=== PATIENT | male | born 1965 | race Two or more races ===

== ENCOUNTER 2017-11-16 09:13 | Emergency (ER) | payer OTHER, SELFPAY ==
[~2017-11-16] VITALS: Ht 165.1 cm; Wt 72.6 kg
[~2017-11-16 09:13] MED LIST: NKM; NORCO 5-325 TA1 EACH ORAL
[2017-11-16] MEDS ORDERED: NORVASC2.5 MG ORAL (09:14)
[2017-11-16] MEDS ORDERED: Meclizine 25mg tab ORAL ONE (09:15)
--- NOTE | 2017-11-16 09:15 | Emergency Room Report ---
History of Present Illness General Source: Patient, EMS Present Illness HPI Patient is a 52-year-old male who presented via EMS after increased spinning sensation. Patient had sudden onset of symptoms. Patient had recently been started on Norvasc. He reports worsening dizziness with head movements. This was associated with nausea and vomiting. Patient denies any weakness to his extremities. He had not been having any fever. The patient denied feeling lightheaded. Allergies: Coded Allergies: No Known Allergies (Unverified , 04/25/13) Patient History Past Medical History: HTN Reviewed Nursing Documentation: PMH: Agreed; PSxH: Agreed Review of Systems All Other Systems: negative except mentioned in HPI Physical Exam Sp02 EP Interpretation: reviewed, normal General Appearance: normal inspection, alert, GCS 15, non-toxic, mild distress Head: atraumatic ENT: normal ENT inspection, hearing grossly normal, normal voice, uvula midline , other - nystagmus Neck: normal inspection, full range of motion, supple, no bony tend Respiratory: normal inspection, lungs clear, normal breath sounds, no respiratory distress, no retraction, no wheezing Cardiovascular #1: regular rate, rhythm, no edema Gastrointestinal: normal inspection, normal bowel sounds, non tender, soft, no guarding, no hernia Genitourinary: no CVA tenderness Musculoskeletal: normal inspection, back normal, normal range of motion Neurologic: normal inspection, alert, oriented x3, responsive, information technology instructor III-XII nml as tested, speech normal, nystagmus Psychiatric: normal inspection, judgement/insight normal, mood/affect normal Skin: normal inspection, normal color, no rash Medical Decision Making Diagnostic Impression: Primary Impression: Vertigo ER Course Patient presented for dizziness. Differential diagnosis included was not limited to CVA, vertebrobasilar insufficiency, myocardial infarction, benign positional vertigo, labyrinthitis, aspirin overdose among others. The patient has exam consistent with peripheral vertigo likely do to benign positional vertigo. Patient is given Zofran and oral meclizine. Patient was noted to have continued spinning sensation and was having continued difficulty ambulating. The patient reported having some discomfort to his neck and so CT of neck with contrast was ordered to evaluate for possible vertebral dissection. The patient was discussed with Dr. Andrea for transfer and will be transferred [facility] if CT is negative Labs Test 11/16/17 02:21 White Blood Count 13.2 K/UL (4.8-10.8) Red Blood Count 5.57 M/UL (4.70-6.10) Hemoglobin 16.2 G/DL (14.2-18.0) Hematocrit 46.8 % (42.0-52.0) Mean Corpuscular Volume 84 FL (80-99) Mean Corpuscular Hemoglobin 29.1 PG (27.0-31.0) Mean Corpuscular Hemoglobin Concent 34.6 G/DL (32.0-36.0) Red Cell Distribution Width 11.0 % (11.6-14.8) Platelet Count 232 K/UL (150-450) Mean Platelet Volume 7.6 FL (6.5-10.1) Neutrophils (%) (Auto) % (45.0-75.0) Lymphocytes (%) (Auto) % (20.0-45.0) Monocytes (%) (Auto) % (1.0-10.0) Eosinophils (%) (Auto) % (0.0-3.0) Basophils (%) (Auto) % (0.0-2.0) Differential Total Cells Counted 100 Neutrophils % (Manual) 85 % (45-75) Lymphocytes % (Manual) 11 % (20-45) Monocytes % (Manual) 3 % (1-10) Eosinophils % (Manual) 1 % (0-3) Basophils % (Manual) 0 % (0-2) Band Neutrophils 0 % (0-8) Platelet Estimate Adequate Platelet Morphology Normal Red Blood Cell Morphology Normal Prothrombin Time 10.1 SEC (9.30-11.50) Prothromb Time International Ratio 1.0 (0.9-1.1) Activated Partial Thromboplast Time 25 SEC (23-33) Sodium Level 139 MMOL/L (136-145) Potassium Level 3.6 MMOL/L (3.5-5.1) Chloride Level 102 MMOL/L (98-107) Carbon Dioxide Level 26 MMOL/L (21-32) Anion Gap 11 mmol/L (5-15) Blood Urea Nitrogen 13 mg/dL (7-18) Creatinine 0.9 MG/DL (0.55-1.30) Estimat Glomerular Filtration Rate > 60 mL/min (>60) Glucose Level 142 MG/DL (74-106) Calcium Level 8.8 MG/DL (8.5-10.1) Total Bilirubin 0.3 MG/DL (0.2-1.0) Aspartate Amino Transf (AST/SGOT) 23 U/L (15-37) Alanine Aminotransferase (ALT/SGPT) 43 U/L (12-78) Alkaline Phosphatase 79 U/L (46-116) Total Creatine Kinase 142 U/L (26-308) Creatine Kinase MB 3.1 NG/ML (0.0-3.6) Creatine Kinase MB Relative Index 2.1 Troponin I 0.000 ng/mL (0.000-0.056) Pro-B-Type Natriuretic Peptide 6 pg/mL (0-125) Total Protein 8.3 G/DL (6.4-8.2) Albumin 4.0 G/DL (3.4-5.0) Globulin 4.3 g/dL Albumin/Globulin Ratio 0.9 (1.0-2.7) EKG Diagnostic Results Rate: normal - 58 Rhythm: NSR ST Segments: no acute changes Status: unchanged Disposition: XFER SHT-TRM HOSP Condition: Serious Scripts Meclizine Hcl* (MECLIZINE*) 25 Mg Tablet 25 MG ORAL THREE TIMES A DAY, #30 TAB Prov: Humberto Paul MD 11/16/17 Ondansetron (Zofran) 4 Mg Tablet 4 MG ORAL Q6H PRN for Nausea & Vomiting, #30 TAB 0 Refills Prov: Humberto Paul MD 11/16/17 Humberto Paul MD Nov 16, 2017 09:15
[2017-11-16 09:30] VITALS: BP 175/83
[2017-11-16] MEDS ORDERED: Meclizine 25mg tab ONE (09:53)
[2017-11-16 10:01] VITALS: BP 154/90
--- NOTE | 2017-11-16 10:07 | Diagnostic Imaging Report ---
EXAM: CT Head Without Intravenous Contrast CLINICAL HISTORY: PAIN TECHNIQUE: Axial computed tomography images of the head/brain without intravenous contrast. CTDI is 70.38 mGy and DLP is 1354 mGy-cm. One or more of the following dose reduction techniques were used: automated exposure control, adjustment of the mA and/or kV according to patient size, use of iterative reconstruction technique. COMPARISON: No relevant prior studies available. FINDINGS: Brain: Unremarkable. No hemorrhage. No significant white matter disease. No edema. Ventricles: Unremarkable. No ventriculomegaly. Bones/joints: Unremarkable. No acute fracture. Soft tissues: Unremarkable. Sinuses: Bilateral maxillary sinus mucous retention cyst or polyps. Mild ethmoid sinus mucosal thickening. Mastoid air cells: Unremarkable as visualized. No mastoid effusion. IMPRESSION: 1. No acute intracranial abnormality. 2. Paranasal sinus mucous retention cyst or polyps.
[2017-11-16 11:00] VITALS: BP 152/79
[2017-11-16] MEDS ORDERED: MECLIZINE HCL25 MG ORAL (12:01)
[2017-11-16] MEDS ORDERED: ZOFRAN4 MG ORAL (12:01)
[2017-11-16] MEDS ORDERED: Metoclopramide 10mg/2ml Inj ONE (12:12)
[2017-11-16] MEDS ORDERED: Isovue-370 150ml vial INJ PRN (12:15)
[2017-11-16 12:34] LABS: HEMATOCRIT 46.8 % (42.0-52.0); HEMOGLOBIN 16.2 G/DL (14.2-18.0); MEAN CORPUSCULAR VOLUME 84 FL (80-99); PLATELET COUNT 232 K/UL (150-450); RED BLOOD COUNT 5.57 M/UL (4.70-6.10); WHITE BLOOD COUNT 13.2 K/UL (4.8-10.8)
[2017-11-16 12:58] LABS: ANION GAP 11 mmol/L (5-15); BLOOD UREA NITROGEN 13 mg/dL (7-18); CALCIUM 8.8 MG/DL (8.5-10.1); CARBON DIOXIDE 26 MMOL/L (21-32); CHLORIDE 102 MMOL/L (98-107); CREATININE 0.9 MG/DL (0.55-1.30); POTASSIUM 3.6 MMOL/L (3.5-5.1); SODIUM 139 MMOL/L (136-145)
[2017-11-16 13:12] LABS: ALANINE AMINOTRANSFERASE 43 U/L (12-78); ALBUMIN/GLOBULIN RATIO 0.9 (1.0-2.7); ALKALINE PHOSPHATASE 79 U/L (46-116); ASPARTATE AMINO TRANSFERASE 23 U/L (15-37); BILIRUBIN,TOTAL 0.3 MG/DL (0.2-1.0); CKMB 3.1 NG/ML (0.0-3.6); CREATINE KINASE 142 U/L (26-308)
[2017-11-16 13:30] VITALS: BP 148/74
[2017-11-16] MEDS ORDERED: Metoclopramide 10mg/2ml Inj IM ONE (14:00)
[2017-11-16 16:00] VITALS: BP 155/98
[2017-11-16 16:05] VITALS: BP 155/98
--- NOTE | 2017-11-17 08:32 | Diagnostic Imaging Report ---
Indication: Chest pain Technique: One view of the chest Comparison: Findings: Lungs and pleural spaces are clear. Heart size is upper limit normal . There is mild elevation of the right hemidiaphragm Impression: No acute process This agrees with the preliminary interpretation provided overnight by [facility].
--- NOTE | 2017-11-17 08:44 | Diagnostic Imaging Report ---
Indication: Reason For Exam: PAIN Technique: IV administration nonionic contrast. Arterial phase spiral acquisitions obtained through the neck. Multiplanar and 3-D reconstructions were generated. Total dose length product 1678 mGycm. CTDIvol(s) 16, 49, 60 mGy. Dose reduction achieved using automated exposure control Comparison: none Findings: The aortic arch is unremarkable. There is common origin of the right brachiocephalic and left common carotid arteries. This is a normal anatomic variant. Patent and nonstenotic right brachycephalic, common, and internal carotid arteries. No significant osseous cardiac plaquing. Patent and nonstenotic right proximal subclavian and vertebral arteries. The left vertebral artery is dominant, right vertebral artery smaller. The left vertebral artery and proximal subclavian artery are patent and nonstenotic. Likewise patent and nonstenotic left common carotid and internal carotid arteries. The upper aerodigestive tract is unremarkable. There is bilateral maxillary sinus disease. The thyroid is unremarkable. No cervical mass or adenopathy. The salivary glands are unremarkable. There is degenerative spondylosis of the cervical spine, with long segment borderline spinal stenosis resulting predominantly from short pedicles but also from posterior disc bulges and osteophytes. The included lung apices are clear. Impression: Essentially unremarkable exam Incidental finding of sinus disease and cervical spondylosis This agrees with the preliminary interpretation provided overnight by [facility] service. The CT scanner at [facility] is accredited by the [employer] and the scans are performed using protocols designed to limit radiation exposure to as low as reasonably achievable to attain images of sufficient resolution adequate for diagnostic evaluation.
--- NOTE | 2017-11-17 19:33 | Cardiology Report ---
APPROVED REPORT EKG Measurement Heart [id number] Sinus bradycardia Otherwise normal ECG
== END 2017-11-16 16:05 | disposition short-term general hospital (02) ==
LOC: EDBD 09:13 → EMR 09:30
DX: R42 Dizziness and giddiness (principal); I10 Essential (primary) hypertension
CPT/HCPCS: 36415; 70450; 70498; 71045; 80053; 82550; 82553; 83880; 84484; 85007; 85025; 85610; 85730; 93005; 96372; 99285; J2765; Q9967